=== PATIENT | male | born 1995 | race Caucasian/White ===

== ENCOUNTER 2020-08-16 16:36 | Emergency (ER) | payer OTHER, SELFPAY ==
--- NOTE | ~2020-08-16 | CT_ITS ---
EXAMINATION: CT soft tissue neck w con DATE: 08/16/2020 19:25 INDICATION: Neck swelling TECHNIQUE: Computed tomography (CT) of the neck was performed with 75 mL Omnipaque-350 intravenous co ntrast. Automated exposure control and iterative reconstruction technique were employed. The dose-mainor gth product was 492.12 mGy-cm. COMPARISON: None FINDINGS: There is a centrally low attenuation peripherally enhancing fluid collection measuring 3.6 x 3.1 x 2. 3 cm centered in the region of the right palatine tonsil which is concerning for abscess. The mass na rrows the right side of the oral pharyngeal airway deviating the uvula towards the left. No evident e xtension into the remaining deep spaces of the neck including the retropharyngeal space. There are en larged likely reactive bilateral level 2 lymph nodes measuring up to 11 mm in maximal short axis diam eter on the left and 15 mm in maximal short axis diameter on the right. The hypopharynx, epiglottis a nd aryepiglottic folds are normal. The thyroid and bilateral parotid and submandibular glands are unr emarkable. The bilateral upper lung zones are clear. Bones are unremarkable. Left vertebral artery is dominant. The orbits, paranasal sinuses and mastoid air cells are normal. Visualized portions of the brain are unremarkable. IMPRESSION: 1. 3.6 x 2.1 x 2.3 cm abscess of the right palatine tonsil. 2. Likely reactive bilateral upper cervical lymphadenopathy. Reviewed, dictated and finalized at location A.
[2020-08-16 16:50] VITALS: BP 127/75; PULSE 86; RESP 16; TEMP 36.9; O2SAT 100
[2020-08-16] MEDS: IBUPROFEN IV 800 MG/200 ML 800 MG/200 ML BAG 400 MG IVPB (18:41)
[2020-08-16] MEDS: SODIUM CHLORIDE 0.9% IV 1,000 ML 999 ML IV CONT (18:41)
[2020-08-16] MEDS: CLINDAMYCIN 900 MG/NS 50 ML 900 MG/50 ML PIGGYBACK 50 MG IVPB (18:41)
[2020-08-16 18:46] LABS: Basophils Absolute Auto 0.1 K/mm3 (0.0-0.1); Basophils Percent Auto 0.3 % (0.2-1.2); Eosinophils Percent Auto 0.1 % (0-4.4); Hematocrit 43.8 % (42.0-52.0); Hemoglobin 14.9 g/dL (14.0-18.0); Immature Granulocyte Absolute 0.08 K/mm3 (0.00-0.031); Immature Granulocyte Percent A 0.4 % (0-0.5); Lymphocytes Absolute Auto 1.26 K/mm3 (0.9-3.2); Lymphocytes Percent Auto 6.9 % (18.3-44.2); Mean Corpuscular Hemoglobin 30.6 pg (26-34); Mean Corpuscular Volume 89.9 fl (80-100); Mean Platelet Volume 10.9 fl (7.4-10.4); Monocytes Absolute Auto 1.2 K/mm3 (0.1-0.6); Monocytes Percent Auto 6.6 % (2.6-8.5); Neutrophils Absolute Auto 15.7 K/mm3 (1.3-6.7); Neutrophils Percent Auto 85.7 % (45.5-73.1); Platelet Count Result 376 k/mm3 (150-375); Red Blood Count 4.87 M/mm3 (4.6-6.20); Red Cell Distribution Width 11.7 % (11.5-14.5); White Blood Count 18.3 K/mm3 (4.5-10.0)
[2020-08-16 18:58] LABS: Alanine Aminotransferase 40 U/L (4-50); Albumin Level 4.6 g/dL (3.5-5.1); Alkaline Phosphatase 93 U/L (38-126); Anion Gap 12 mmol/L (8-16); Aspartate Amino Transferase 30 U/L (17-59); Bilirubin,Total 0.7 mg/dL (0.2-1.3); Blood Urea Nitrogen 8 mg/dL (9-20); Calcium 10.3 mg/dL (8.4-10.2); Carbon Dioxide 31 mmol/L (22-30); Chloride 96 mmol/L (98-107); Estimated CRCL calculation 141 ml/min; Estimated Glomerular Filt Rate > 60; Glucose 118 mg/dL (75-110); Potassium 4.7 mmol/L (3.4-5.0); Sodium 139 mmol/L (137-145)
--- NOTE | 2020-08-16 20:06 | ED.GENADULT ---
HPI - General Adult General Chief complaint: Dental/Oral <Hany Liang PA-C - Last Filed: 08/16/20 20:18> Stated complaint: ABCESS IN MY MOUTH <Hany Liang PA-C - Last Filed: 08/16/20 20:18> Time Seen by Provider: 08/16/20 17:35 <Hany Liang PA-C - Last Filed: 08/16/20 20:18> Source: patient and family <Hany Liang PA-C - Last Filed: 08/16/20 20:18> Mode of arrival: ambulatory <Hany Liang PA-C - Last Filed: 08/16/20 20:18> Limitations: no limitations <Hany Liang PA-C - Last Filed: 08/16/20 20:18> History of Present Illness HPI narrative: Patient is a 25-year-old male who presents to emergency department for evaluation of sore throat worsening since prior Friday patient was seen at an urgent care on Friday given a Z-Johnny continued to have worsening symptoms and 1 day ago was prescribed a Medrol Dosepak by primary care patient notes he continues to have moderate aching pain worse with swallowing with decreased appetite and fatigue patient has had negative strep test patient has been taking his medication with no improvement is also been taking Tylenol and ibuprofen with minimal improvement <Hany Liang PA-C - Last Filed: 08/16/20 20:18> Related Data Allergies/adverse reactions: Allergies Allergy/AdvReac Type Severity Reaction Status Date / Time ampicillin Allergy Severe HIVES Verified 06/21/20 16:06 Penicillins Allergy Severe HIVES Verified 06/21/20 16:06 <Hany Liang PA-C - Last Filed: 08/16/20 20:18> Review of Systems Review of Systems: All systems reviewed & are unremarkable except as noted in HPI and below <Hany Liang PA-C - Last Filed: 08/16/20 20:18> [facility] Past Medical History Medical History: Medical History (Updated 08/16/20 @ 20:17 by Hany Liang PA-C) Crohn's disease of small intestine with rectal bleeding <Hany Liang PA-C - Last Filed: 08/16/20 20:18> Surgical History Surgical History: Surgical History H/O eye surgery (01/27/20) <Hany Liang PA-C - Last Filed: 08/16/20 20:18> Social History Social History: Social History Smoking status: Never smoker Alcohol intake: current <Hany Liang PA-C - Last Filed: 08/16/20 20:18> Exam Narrative: Exam Narrative: GENERAL: ill-appearing, well-nourished, and in no acute distress. HEAD: Normocephalic, atraumatic. EYES: PERRLA and EOMI. ENT: Nares clear, no rhinorrhea or epistaxis. Mucous membranes moist. Patient with peritonsillar erythema with right-sided peritonsillar hypertrophy with slight deviation uvula slightly deviated to the left no trismus or drooling NECK: Supple. Anterior adenopathy noted CHEST: Clear to auscultation. No respiratory distress. No wheezes rales or rhonchi HEART: Regular rate and rhythm. No murmur heard. EXTREMITIES: Normal range of motion. No edema. SKIN: Warm, dry, no rash. NEURO: No focal deficits. Alert and oriented x3. PSYCH: Normal mood and affect. <Hany Liang PA-C - Last Filed: 08/16/20 20:18> Course Course Emergency Course: Patient in the room at this time had drainage of his peritonsillar abscess in the emergency department was given IV antibiotic and fluids will follow with ENT in clinic has been given reasons to return patient feels better after the procedure and with the interventions <Hany Liang PA-C - Last Filed: 08/16/20 20:18> Consultations Consultation #1: Discussed case with ENT who will follow patient in clinic <Hany Liang PA-C - Last Filed: 08/16/20 20:18> Date: 08/16/20 <JEANNE Trujillo Last Filed: 08/16/20 20:18> Time: 20:15 <Hany Liang PA-C - Last Filed: 08/16/20 20:18> Vital Signs Vital signs: Vital Signs Temperature 98.5 F 08/16/20 16:50 Pulse Rate 86 08/16/20 16:50
[2020-08-16 20:49] VITALS: BP 123/70; PULSE 70; RESP 16; TEMP 37.3; O2SAT 100
== END 2020-08-16 20:50 | disposition home or self-care (01) ==
PROVIDERS: Emergency Medicine Emergency Medical Services; Emergency Provider General Practice; PCP Family Medicine
DX: J36 Peritonsillar abscess (principal); K50.00 Crohn's disease of small intestine without complications
CPT/HCPCS: 36415; 41800; 42999; 70491; 80053; 85025; 87081; 87880; 96365; 96368; 96375; 99284; A9270; J0131; J1741; J7030; Q9967

== ENCOUNTER 2020-08-22 06:55 | Outpatient (NON) | payer OTHER, SELFPAY ==
[2020-08-23 00:38] LABS: SARS-CoV-2 RNA PCR Negative
== END 2020-08-22 06:56 ==
PROVIDERS: PCP Family Medicine; Visit Provider Family Medicine
DX: J02.9 Acute pharyngitis, unspecified (principal); R50.9 Fever, unspecified; R52 Pain, unspecified; Z20.828 Contact with and (suspected) exposure to other viral communicable diseases
CPT/HCPCS: 87635; C9803; U0003

== ENCOUNTER 2023-08-14 13:20 | Emergency (ER) | payer OTHER, SELFPAY ==
[2023-08-14 13:21] VITALS: BP 155/100; PULSE 84; RESP 20; TEMP 37.4; O2SAT 100
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
--- NOTE | 2023-08-14 13:40 | ECG_ITS ---
Measurements Intervals [place] Rate: 75 P: 60 [place]: 137 QRS: 58 QRSD: 98 T: 39 QT: 360 QTc: 402 Interpretive Statements SINUS RHYTHM MINIMAL Q WAVES- INF/LAT LEADS BORDERLINE ECG NO PREVIOUS ECG AVAILABLE FOR COMPARISON Electronically Signed On 08-14-2023 14:19:08 CDT by Salomón Posadas D.O.
[2023-08-14] MEDS: LORazepam (*CRX) 1 MG TABLET PO (14:02)
[2023-08-14 15:20] VITALS: BP 130/101; PULSE 79; RESP 14; O2SAT 100
[2023-08-14 15:21] VITALS: BP 145/102; PULSE 77; O2SAT 100
== END 2023-08-14 15:55 | disposition home or self-care (01) ==
PROVIDERS: Emergency Provider Student in an Organized Health Care Education/Training Program; PCP Family Medicine
DX: F41.9 Anxiety disorder, unspecified (principal); R00.2 Palpitations; M54.2 Cervicalgia; G89.29 Other chronic pain; F42.9 Obsessive-compulsive disorder, unspecified; R94.31 Abnormal electrocardiogram [ECG] [EKG]
CPT/HCPCS: 93005; 99283; A9270

== ENCOUNTER 2024-01-20 11:38 | Outpatient (CLI) | payer OTHER, SELFPAY ==
[2024-01-20 13:06] LABS: Hematocrit 46.5 % (42.0-52.0); Mean Corpuscular HGB Conc 32.3 g/dl (32-36); Mean Corpuscular Hemoglobin 30.2 pg (26-34); Mean Corpuscular Volume 93.6 fl (80-100); Mean Platelet Volume 11.2 fl (7.4-10.4); Platelet Count Result 267 k/mm3 (150-375); Red Blood Count 4.97 M/mm3 (4.6-6.20); Red Cell Distribution Width 12.4 % (11.5-14.5); White Blood Count 5.1 K/mm3 (4.5-10.0)
[2024-01-20 13:19] LABS: Alanine Aminotransferase 40 U/L (6-50); Albumin Level 4.5 g/dL (3.5-5.1); Alkaline Phosphatase 56 U/L (38-126); Anion Gap 9 mmol/L (8-16); Aspartate Amino Transferase 48 U/L (17-59); Bilirubin,Total 0.4 mg/dL (0.2-1.3); Blood Urea Nitrogen 8 mg/dL (9-20); Calcium 9.5 mg/dL (8.4-10.2); Carbon Dioxide 27 mmol/L (22-30); Chloride 104 mmol/L (98-107); Estimated Glomerular Filt Rate > 60; Glucose 92 mg/dL (65-110); Potassium 4.1 mmol/L (3.4-5.0); Sodium 140 mmol/L (137-145)
[2024-01-23 11:47] LABS: Vitamin D 1,25 (OH)2 Total 46 pg/mL (18-72); Vitamin D2 1,25 (OH)2 <8 pg/mL; Vitamin D3 1,25 (OH)2 46 pg/mL
[2024-01-25 06:45] LABS: Red Blood Cell Folate 551 ng/mL RBC (>280)
== END 2024-01-20 11:39 | disposition home or self-care (01) ==
LOC: ANHGOSHLAB 11:39
PROVIDERS: PCP Family Medicine; Visit Provider Psychiatry & Neurology Neurology
DX: M47.10 Other spondylosis with myelopathy, site unspecified (principal); R79.89 Other specified abnormal findings of blood chemistry; G31.84 Mild cognitive impairment of uncertain or unknown etiology; E55.9 Vitamin D deficiency, unspecified; F41.1 Generalized anxiety disorder; R03.0 Elevated blood-pressure reading, without diagnosis of hypertension; Z79.899 Other long term (current) drug therapy
CPT/HCPCS: 36415; 80053; 82607; 82652; 82747; 84443; 85027; 86038; 86039

== ENCOUNTER 2024-03-22 12:50 | Outpatient (CLI) | payer OTHER, SELFPAY ==
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
== END 2024-03-22 12:51 ==
PROVIDERS: PCP Psychiatry & Neurology Neurology; Visit Provider Psychiatry & Neurology Neurology
DX: M43.02 Spondylolysis, cervical region (principal); Z87.828 Personal history of other (healed) physical injury and trauma
CPT/HCPCS: 70551; 72141

== ENCOUNTER 2024-12-27 16:56 | Emergency (ER) | payer OTHER, SELFPAY ==
[2024-12-27 17:55] VITALS: BP 142/93; PULSE 85; RESP 16; TEMP 36.8; O2SAT 99
[2024-12-27 18:48] LABS: EDINFLUASCREEN Negative (Negative); EDINFLUBSCREEN Negative (Negative); EDSTREPNEGPOS1 Negative (Negative)
--- NOTE | 2024-12-27 18:56 | ED_ITS ---
HPI - URI/Sore Throat General Chief Complaint: Upper Respiratory Infection Stated Complaint: Sore Throat Time Seen by Provider: 12/27/24 18:58 Source: patient, RN notes reviewed and old records reviewed Mode of arrival: ambulatory Limitations: no limitations History of Present Illness HPI Narrative: 29 male presents to [facility] with of sore throat, sinus congestion, headache some productive cough, no fevers since . Patient reports he has been taking sinus cold and flu medications. Patient reports no fevers chills or any shortness of breath or body aches. MD elicited complaint: cough, sore throat, rhinorrhea and nasal congestion Onset (ago): day(s) (5) Severity: moderate Able to tolerate fluids by mouth: Yes Treatments prior to arrival: other (sinus and cold medication) Related Data Allergies Allergy/AdvReac Type Severity Reaction Status Date / Time ampicillin Allergy Severe HIVES Verified 12/27/24 17:46 Penicillins Allergy Severe HIVES Verified 12/27/24 17:46 Review of Systems Review of Systems: CONSTITUTIONAL: Reports some malaise, no chills, sweats, or fever. EYES: Denies visual changes, redness, or discharge. ENT: Reports rhinorrhea, congestion, sinus pain, no otalgia and positive for sore throat. CARDIOVASCULAR: Denies chest pain, palpitations, or edema. RESPIRATORY: Reports intermittent productive cough.? Denies dyspnea. GASTROINTESTINAL: Denies abdominal pain, nausea, vomiting, diarrhea SKIN: Denies rash or itching. MUSCULOSKELETAL: Denies myalgia. NEUROLOGIC:states headache. 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 Crohn's disease of small intestine with rectal bleeding Surgical History Surgical History History of tonsillectomy and adenoidectomy [facility] Medicine H/O eye surgery (01/27/20) Family History Family History Other Hypertension Social History Social History Social History: caffeine-daily Smoking status: Never smoker Second hand tobacco smoke exposure: No Alcohol intake: current Drinks per week: 8 Alcohol use details: Once weekly Substance use: never Substance use type: does not use Other substance usage details: THC occasional Do You Feel Safe in your Home?: Yes Lack of Transportation: No Lack of Food: Never True Current Housing: I Have Housing Concerned About Future Housing: No Difficulty Paying Gas/Electric Bills: No Difficulty Paying for Meds: No Currently Unemployed: No Education: Bachelor's Degree Difficulty w/ Childcare or Family Care: No Comments At time of signature, agree with nursing past medical, surgical, social and family history. There is no relevant family history pertinent to the presenting complaint Exam Narrative: GENERAL: Well-appearing, well-nourished, and in no acute distress. HEAD: Normocephalic EYES: PERRLA, conjunctivae clear ENT: Nares clear, turbinates edematous and erythematous, clear discharge. Mucous membranes moist. TM pearly garcia with dull light reflex bilaterally; no tragal tenderness. Oropharynx erythematous without lesions. Tonsils not enlarged and without exudate, no drooling, no hoarseness, no trismus, uvula midline.post nasal drainage noted NECK: Supple. No lymphadenopathy CHEST: Clear to auscultation, breath sounds equal. No wheezing, rhonchi, rales, or stridor. No respiratory distress, speaks in full sentences.dry cough SAO2 99% on room air HEART: Regular rate and rhythm. No murmur heard. SKIN: Warm, dry, no rash. NEURO: Alert and oriented x3. PSYCH: Normal mood and affect Course Course Emergency Course: Patient is aware of diagnosis, understands and agrees to treatment plan.? Anticipatory guidance given.? Patient agrees to follow-up as directed and is aware of reasons to seek care at the emergency department. Portions of this record may have been created with voice recognition software Level of Care: Express Care Visit Vital Signs Vital signs: Vital Signs Temperature 36.8 C 12/27/24 17:55 Pulse Rate 85 12/27/24 17:55 Respiratory Rate 16 12/27/24 17:55 Blood Pressure 142/93 H 12/27/24 17:55 Pulse Oximetry 99 12/27/24 17:55 Temperature 36.8 C 12/27/24 17:55 Pulse Rate 85 12/27/24 17:55 Respiratory Rate 16 12/27/24 17:55 Blood Pressure 142/93 H 12/27/24 17:55 Pulse Oximetry 99 12/27/24 17:55 Reviewed MDM - URI/Sore Throat MDM Narrative Medical decision making narrative: Differential diagnosis considered: [place] virus, strep pharyngitis, allergic rhinitis, upper respiratory tract infection, sinusitis, rhinosinusitis, nasopharyngitis. viral pharyngitis, otitis media, otitis externa, pneumonia, bronchitis, viral cough syndrome, viral syndrome, and influenza.? Exam findings show no acute concerns or changes; patient is non-toxic appearing and is in no distress.? Patient is appropriate for outpatient treatment and follow-up. Differential Diagnosis Differential diagnosis: Likely upper respiratory infection, viral infection, influenza, pharyngitis and other (strep pharyngitis, COVID) Medical Records Attestation: I reviewed the patient's medical records. Lab Data Attestation: I reviewed the patient's lab results. Lab results narrative: Influenza A negative, Influenza B negative, COVID antigen negative, strep screen negative culture sent. Labs: Lab Results 12/27/24 Range/Units 18:46 POC Influenza A Ag Negative (Negative) POC Influenza B Ag Negative (Negative) POC Grp A Strep Screen Negative (Negative) reviewed Critical Care Time Critical Care Time Critical Care Time: No Discharge Plan Discharge Clinical Impression: URI, acute Pharyngitis Qualifiers: Pharyngitis/tonsillitis etiology: unspecified etiology Qualified Code(s): J02.9 - Acute pharyngitis, unspecified Patient Disposition: Home, Self-Care Condition: Stable Instructions: Antibiotic Form, Pharyngitis (ED), Upper Respiratory Infection (ED) Additional Instructions: Increase fluids especially juices and water Zlfg-[id number] cough and cold medicine of your choice for your symptoms Tylenol or ibuprofen for any fever pain Zyrtec Claritin or Cynthia daily may also use Coricidin brand decongestant Steroids as directed--take with food heat to the face 20-30 minutes 4-6 times a day for pain Salt water gargles, throat lozenges or throat sprays as desired Your strep test today was negative. A throat culture will be sent to the [facility] for further testing. IF the test is positive, you will receive a phone call within 48 hours and an appropriate antibiotic will be initiated at that time. If your symptoms persist, change or worsen significantly before you can contact your personal physician then please, without delay, go to the emergency department for further evaluation. Follow-up with PCP in 7-10 days or sooner if needed Follow up with PCP soon in regards to your blood pressure which is elevated above threshold for referral. Blood pressure above 120/80 may indicate pre- hypertension. 142/93 Patient Language: [place] Prescriptions: New methylprednisolone [Medrol (Johnny)] 4 mg tablets,dose pack See Rx Instructions .ROUTE .COMPLEX Qty: 21 0RF Rx Instructions: orally per package directions start tomorrow No Action glycopyrrolate 1 mg tablet 1 mg PO BID Qty: 60 1RF fluvoxamine 150 mg capsule,extended release 24hr 150 mg PO QHS Qty: 30 0RF Follow-up/Referrals: Vee Lyman, [employer]ECUT[employer] ASSISTANT-C [Primary Care Provider] - Time of Disposition: 19:05 Quality [place] Coma Scale Eyes: Open Verbal: Oriented and Alert Motor: Follows Commands Yue Coma Total Score: 15
== END 2024-12-27 19:08 | disposition home or self-care (01) ==
PROVIDERS: Emergency Provider Registered Nurse; PCP Nurse Practitioner
DX: J06.9 Acute upper respiratory infection, unspecified (principal); J02.9 Acute pharyngitis, unspecified; K50.00 Crohn's disease of small intestine without complications
CPT/HCPCS: 87081; 87804; 87880; 99213; G0463